=== PATIENT | female | born 1990 | race Caucasian/White ===

== ENCOUNTER 2016-08-11 16:14 | Emergency (ER) | payer SELFPAY ==
[2016-08-11 16:53] LABS: ABSOLUTE EOSINOPHILS # (AUTO) 0.2 10^3/uL (0.0-0.6); ABSOLUTE MONOCYTES (AUTO) 0.8 10^3/uL (0.1-1.4); ABSOLUTE NEUT (AUTO) 6.9 10^3/uL (1.7-8.2); BASOPHILS % (AUTO) 0.4 % (0-2); EOSINOPHILS % (AUTO) 2.3 % (0-6); HEMATOCRIT 39.3 % (36.0-47.0); HGB HCT DIFFERENCE -0.3; LYMPHOCYTES % (AUTO) 20.1 % (13-45); MEAN CORPUSCULAR HEMOGLOBIN 31.4 pg (27.0-33.4); MEAN CORPUSCULAR HGB CONC 33.1 g/dL (32.0-36.0); MEAN CORPUSCULAR VOLUME 95 fl (80-97); MONOCYTES % (AUTO) 7.9 % (3-13); RED BLOOD COUNT 4.15 10^6/uL (3.72-5.28); RED CELL DISTRIBUTION WIDTH 12.3 % (11.5-14.0); SEGMENTED NEUTROPHILS % (AUTO) 69.3 % (42-78); WHITE BLOOD COUNT 9.9 10^3/uL (4.0-10.5)
[2016-08-11 17:19] LABS: APPEARANCE,URINE CLEAR; BILIRUBIN,URINE NEGATIVE (NEGATIVE); GLUCOSE, URINE NEGATIVE (NEGATIVE); KETONES,URINE NEGATIVE (NEGATIVE); LEUKOCYTE ESTERASE,URINE NEGATIVE (NEGATIVE); NITRITE,URINE NEGATIVE (NEGATIVE); PROTEIN,URINE NEGATIVE (NEGATIVE); URINE SPECIFIC GRAVITY 1.014; UROBILINOGEN,URINE NEGATIVE mg/dL (<2.0)
[2016-08-11 17:25] LABS: ANION GAP 9 (5-19); BLOOD UREA NITROGEN 10 mg/dL (7-20); CALCIUM 8.9 mg/dL (8.4-10.2); CARBON DIOXIDE 24 mmol/L (22-30); CHLORIDE 105 mmol/L (98-107); CREATININE RESULT 0.71 mg/dL (0.52-1.25); GLUCOSE 85 mg/dL (75-110); POTASSIUM 4.6 mmol/L (3.6-5.0)
[2016-08-11 17:34] LABS: URINE BARBITURATES SCREEN NEGATIVE; URINE METHADONE SCREEN NEGATIVE; URINE PHENCYCLIDINE SCREEN NEGATIVE
--- NOTE | 2016-08-11 18:06 | EKG REPORT ---
SEVERITY:- NORMAL ECG - SINUS RHYTHM : Confirmed by: Duke Chen MD 11-Aug-2016 18:04:55
--- NOTE | 2016-08-11 18:56 | ER Document Report ---
ED Syncope and Near Syncope - General Chief Complaint: Syncope Stated Complaint: DIZZY Time Seen by Provider: 08/11/16 16:36 Mode of Arrival: Medic TRAVEL OUTSIDE OF THE [place] IN LAST 30 DAYS: No - Related Data Allergies/Adverse Reactions: No Known Allergies Allergy (Verified 09/14/15 11:31) Past Medical History - Social History Family History: Reviewed & Not Pertinent - Past Medical History Cardiac Medical History: Denies: Hx Coronary Artery Disease, Hx Heart Attack, Hx Hypertension Pulmonary Medical History: Denies: Hx Asthma, Hx Bronchitis, Hx COPD, Hx Pneumonia Neurological Medical History: Denies: Hx Cerebrovascular Accident, Hx Seizures Musculoskeltal Medical History: Denies Hx Arthritis Past Surgical History: Reports: Hx Cholecystectomy. Denies: Hx Hysterectomy Physical Exam - Vital signs Vitals: Resp Pulse Ox 17 100 08/11/16 16:46 08/11/16 16:46 Course - Re-evaluation Re-evalutation: 08/11/16 18:56 I personally performed the services described in the documentation, reviewed and edited the documentation which was dictated to my scribe in my presence, and it accurately records my words and actions. seen and evaluated in the emergency department with lower abdominal pain and vaginal bleeding. Patient states that she had a positive test on July 26. She has not sought out any treatment or seen an [facility] physician. She said 2-3 days ago she started having lower abdominal pelvic pain initially some spotting and then some bleeding. She has a picture on her cell phone of something that she passed last night which is not really clear as to whether it' s tissue from the fetus or not. She says since last night the pain and the bleeding had gotten better. Her quantitative beta hCG is 2233 with an ultrasound showing no intrauterine or extrauterine . I spoke with the LENS ASSORTER physician converter operator Dr. Jenkins who states her Quant is low therefore he may not be able to see a developing fetus inside the uterus, or she is in the process of having a miscarriage, or she has an early ectopic that is not showing up as an adnexal mass. Had an extensive conversation with the patient at the bedside and gave her details about a repeat quantitative and ultrasound 48 hours as well as 1 day follow-up with the LENS ASSORTER physician. Explained to her and gave her discharge instructions that we cannot rule out an ectopic . She is to return immediately for increasing pain bleeding or any other concerns otherwise she is to call Dr. Jenkins office tomorrow for a follow-up appointment with LENS ASSORTER in one to 2 days extensive discussion on reasons for ED return sooner - Vital Signs Vital signs: Temp Pulse Resp BP Pulse Ox 18 108/74 100 08/11/16 18:36 08/11/16 18:36 08/11/16 18:36 - Laboratory Result Diagrams: 08/11/16 16:40 08/11/16 16:40 Laboratory results interpreted by me: 08/11/16 17:05 Urine Blood MODERATE H Discharge - Discharge Clinical Impression: Headache Qualifiers: Headache type: unspecified Headache chronicity pattern: acute headache Intractability: not intractable Qualified Code(s): R51 - Headache Additional Instructions: Pelvic Pain in Lower abdominal pain during can have many causes. We look for serious causes such as appendicitis, tubal , miscarriage, placental separation, or urinary tract infection. Less serious causes of pain include corpus luteum cyst (ovarian cyst of ) or stretching of the pelvic tissues by the enlarging uterus. Sometimes the pain comes from the bowels. If no specific cause for the pain is found, we attribute the pain to stretching of the uterine ligaments. This is called "round ligament strain." It is not dangerous. Just rest until the pain goes away. Call us or come back for reexamination if any problems occur, such as: (1) Pain that becomes more severe, steady, or becomes concentrated in one specific area. Also, pain that is more severe with movement or coughing. (2) Vomiting that persists or becomes more frequent. (3) Blood in the vomitus, urine, or bowel movements. Blood in the stool may have a tarry or black appearance. (4) Shaking chills or fever greater than 100 degrees. (5) The abdomen becomes more distended or swollen. (6) Bowel movements cease. (7) Vaginal bleeding. cannot exclude and early ectopic If the ruptures the tube, this is an emergency. Rupture causes severe lower abdominal pain. Sometimes patients faint as the rupture occurs. There's usually vaginal bleeding, but not always. Immediate surgery is required. Return at once if you have lightheadedness, constant or worsening low abdominal pain, or vaginal bleeding. Referrals: MAGDIEL VILLANUEVA DO [EFFICIENCY ANALYST] - Follow up tomorrow (Call the office in the a.m. to be seen in 1-2 days return for increasing worsening or new symptoms)
--- NOTE | 2016-08-11 19:01 | ER Document Report ---
[id number] 4d DIZZY Time Seen by Provider: 08/11/16 16:36 TRAVEL OUTSIDE OF THE [place] IN LAST 30 DAYS: No - Related Data Allergies/Adverse Reactions: No Known Allergies Allergy (Verified 09/14/15 11:31) Past Medical History - Social History Smoking Status: Unknown if Ever Smoked Family History: Reviewed & Not Pertinent - Past Medical History Cardiac Medical History: Denies: Hx Coronary Artery Disease, Hx Heart Attack, Hx Hypertension Pulmonary Medical History: Denies: Hx Asthma, Hx Bronchitis, Hx COPD, Hx Pneumonia Neurological Medical History: Denies: Hx Cerebrovascular Accident, Hx Seizures Musculoskeltal Medical History: Denies Hx Arthritis Past Surgical History: Reports: Hx Cholecystectomy. Denies: Hx Hysterectomy Physical Exam - Vital signs Vitals: Resp Pulse Ox 17 100 08/11/16 16:46 08/11/16 16:46 Course - Vital Signs Vital signs: Temp Pulse Resp BP Pulse Ox 16 110/72 99 08/11/16 19:01 08/11/16 19:00 08/11/16 19:01 - Laboratory Result Diagrams: 08/11/16 16:40 08/11/16 16:40 Laboratory results interpreted by me: 08/11/16 17:05 Urine Blood MODERATE H - EKG Interpretation by Me Additional EKG results interpreted by me: 08/11/16 19:03 EKG shows normal sinus rhythm at [address] segment elevation or depression Discharge - Discharge Clinical Impression: Left against medical advice Headache Qualifiers: Headache type: unspecified Headache chronicity pattern: acute headache Intractability: not intractable Qualified Code(s): R51 - Headache Syncope Qualifiers: Syncope type: unspecified Qualified Code(s): R55 - Syncope and collapse Condition: Stable Disposition: HOME, SELF-CARE Additional Instructions: Headache The physician does not feel that the headache you are experiencing has a serious underlying cause. Most headaches are due to emotional stress, with resultant muscle tension (tension headache). Occasionally, headaches are secondary to changes in the blood vessels of the scalp (vascular headache and migraine headache). Sometimes, a headache is the first symptom of another developing illness, such as a viral infection. You have no evidence of stroke, bleeding, meningitis, or other serious cause of your headache. The treatment of headaches varies with the severity and cause of the pain. Not all headaches need pain shots. In fact, there is evidence that using narcotics for headaches may make them worse in the long run. The physician will determine the therapy that's in your best interest. If you develop a fever, if the headache is different from any you've previously experienced, or if the headache progressively worsens, then call your physician at once or go to the emergency room. Syncopal Episode Syncope (fainting or near-fainting) can occur from many different health problems. Or it can be a simple fainting spell requiring no treatment. It is safe for you to go home, but further evaluation will likely be necessary. Your work-up may include tests for internal bleeding, heart disease, medication problems, or near-strokes. Tests are not always required, however, depending on the nature of your problem. The warning signs of an impending faint include: dizziness, lightheadedness , nausea, hot flashes, tingling, and weakness. If this happens, lay down and put your feet up, then wait until all of these symptoms have passed before standing up again. If these episodes become recurrent, or if you develop chest pain, heart palpitations, mental confusion, blurred vision, or headache, then you should call the physician, or go to the emergency room. Referrals: [facility] [Provider Group] - Follow up tomorrow (in 1-2 days return to er sooner for increasing worsening or new symptoms)
[2016-08-11 19:04] VITALS: BP 110/72
== END 2016-08-11 19:14 | disposition home or self-care (01) ==
LOC: ER 16:14
DX: R55 Syncope and collapse (principal); R51 Headache; Z53.20 Procedure and treatment not carried out because of patient's decision for unspecified reasons
CPT/HCPCS: 36415; 71010; 80048; 80307; 81001; 81025; 85025; 93005; 93010; 99284

== ENCOUNTER 2017-01-07 09:40 | Emergency (ER) | payer OTHER ==
--- NOTE | 2017-01-07 11:12 | ER Document Report ---
HPI - HPI Patient complains to provider of: sore throat Pain Level: 1 Context: 26 yo female c/o sore throat, cough x 3 days Associated Symptoms: Body/muscle aches, Productive cough, Fever, Headache, Hoarseness, Hurts to breath, Nausea, Sore throat. denies: Vomiting Exacerbated by: Coughing, Deep breathing Relieved by: Denies Similar symptoms previously: No Recently seen / treated by doctor: No - ROS Systems Reviewed and Negative: Yes All other systems reviewed and negative - REPRODUCTIVE LMP: 12/13/16 Reproductive: DENIES: : - DERM Skin Color: Normal Past Medical History - General Information source: Patient - Social History Smoking Status: Current Every Day Smoker Chew tobacco use (# tins/day): No Frequency of alcohol use: None Drug Abuse: None Lives with: Family Family History: Reviewed & Not Pertinent Patient has suicidal ideation: No Patient has homicidal ideation: No - Past Medical History Cardiac Medical History: Denies: Hx Coronary Artery Disease, Hx Heart Attack, Hx Hypertension Pulmonary Medical History: Denies: Hx Asthma, Hx Bronchitis, Hx COPD, Hx Pneumonia Neurological Medical History: Denies: Hx Cerebrovascular Accident, Hx Seizures Endocrine Medical History: Denies: Hx Diabetes Mellitus Type 1, Hx Diabetes Mellitus Type 2 Renal/ Medical History: Denies: Hx Peritoneal Dialysis Musculoskeltal Medical History: Denies Hx Arthritis Past Surgical History: Reports: Hx Cholecystectomy. Denies: Hx Hysterectomy - Immunizations Hx Diphtheria, Pertussis, Tetanus Vaccination: Yes Vertical Provider Document - CONSTITUTIONAL Agree With Documented VS: Yes Exam Limitations: No Limitations General Appearance: WD/WN, No Apparent Distress - mildly ill looking - INFECTION CONTROL TRAVEL OUTSIDE OF THE [place] IN LAST 30 DAYS: No - HEENT HEENT: Pharyngeal Tenderness, Pharyngeal Erythema - NECK Neck: Normal Inspection, Supple - RESPIRATORY Respiratory: Breath Sounds Normal, No Respiratory Distress O2 Sat by Pulse Oximetry: 99 - CARDIOVASCULAR Cardiovascular: Regular Rate, Regular Rhythm - MUSCULOSKELETAL/EXTREMETIES Musculoskeletal/Extremeties: ROBERTO LIN - NEURO Level of Consciousness: Awake, Alert - DERM Integumentary: Warm, Dry, No Rash Course - Vital Signs Vital signs: Temp Pulse Resp BP Pulse Ox 98.4 F 89 14 131/81 H 99 01/07/17 10:04 01/07/17 10:04 01/07/17 10:04 01/07/17 10:04 01/07/17 10:04 Discharge - Discharge Clinical Impression: Sore throat, Cough Condition: Stable Disposition: HOME, SELF-CARE Instructions: Sore Throat ([facility]), Cough Suppressant & Expectorant Medications Additional Instructions: take medications as prescribed lozenges, salt water gargles new tooth brush in 2 days Prescriptions: Amoxicillin 500 mg PO TID #21 tablet Phenylephrine HCl/Cod/Prometh [Phenergan Vc-Codeine Syrup] 5 - 10 ml PO Q4H # 120 ml Forms: Return to Work
[2017-01-07 11:37] VITALS: BP 123/74
== END 2017-01-07 11:35 | disposition home or self-care (01) ==
LOC: ER 09:40
DX: J02.9 Acute pharyngitis, unspecified (principal); R05 Cough; R50.9 Fever, unspecified; R51 Headache; R49.0 Dysphonia; R07.1 Chest pain on breathing; F17.200 Nicotine dependence, unspecified, uncomplicated
CPT/HCPCS: 99282

== ENCOUNTER 2017-01-14 14:25 | Emergency (ER) | payer OTHER ==
[2017-01-14] MEDS ORDERED: ALBUTEROL SULFATE 0.083% NEB 2.5 MG/3 ML AMPUL NEB ONE (16:27)
[2017-01-14 16:28] LABS: APPEARANCE,URINE CLEAR; BILIRUBIN,URINE NEGATIVE (NEGATIVE); GLUCOSE, URINE NEGATIVE (NEGATIVE); KETONES,URINE NEGATIVE (NEGATIVE); LEUKOCYTE ESTERASE,URINE NEGATIVE (NEGATIVE); NITRITE,URINE NEGATIVE (NEGATIVE); PROTEIN,URINE NEGATIVE (NEGATIVE); URINE SPECIFIC GRAVITY 1.003; UROBILINOGEN,URINE NEGATIVE mg/dL (<2.0)
--- NOTE | 2017-01-14 16:30 | ER Document Report ---
HPI - HPI Patient complains to provider of: cough, vaginal discharge Pain Level: 2 Context: Patient is a 26-year-old female who presents emergency department complaining of vaginal discharge. Patient states that she has had 4 days of yellow/green vaginal discharge with associated vaginal itching and odor. Patient states that she sexually active in a monogamous relationship with her . They do not use protection. Past medical history significant for recent antibiotic use for strep throat. Patient states that her initial symptoms were sore throat with associated cough. Patient states that the sore throat is not resolved with antibiotics but she still has had a cough for the past 10 days. She denies any fevers, chills. States productive of clear sputum but nothing purulent. Denies any history of asthma. States she is a pack-a-day smoker for the past 6 years. - CARDIOVASCULAR Cardiovascular: DENIES: Chest pain - REPRODUCTIVE Reproductive: DENIES: : - DERM Skin Color: Normal Past Medical History - General Last Menstrual Period: ended 2 days ago - Social History Smoking Status: Current Every Day Smoker Chew tobacco use (# tins/day): No Drug Abuse: None Family History: Reviewed & Not Pertinent Patient has suicidal ideation: No Patient has homicidal ideation: No - Past Medical History Cardiac Medical History: Denies: Hx Coronary Artery Disease, Hx Heart Attack, Hx Hypertension Pulmonary Medical History: Denies: Hx Asthma, Hx Bronchitis, Hx COPD, Hx Pneumonia Neurological Medical History: Denies: Hx Cerebrovascular Accident, Hx Seizures Endocrine Medical History: Denies: Hx Diabetes Mellitus Type 1, Hx Diabetes Mellitus Type 2 Renal/ Medical History: Denies: Hx Peritoneal Dialysis Musculoskeltal Medical History: Denies Hx Arthritis Past Surgical History: Reports: Hx Cholecystectomy. Denies: Hx Hysterectomy - Immunizations Hx Diphtheria, Pertussis, Tetanus Vaccination: Yes Vertical Provider Document - CONSTITUTIONAL Agree With Documented VS: Yes Exam Limitations: No Limitations General Appearance: WD/WN, No Apparent Distress - INFECTION CONTROL TRAVEL OUTSIDE OF THE [place] IN LAST 30 DAYS: No - HEENT HEENT: Atraumatic, Normal ENT Exam, Normocephalic - NECK Neck: Normal Inspection. negative: Lymphadenopathy-Left, Lymphadenopathy-Right - RESPIRATORY Respiratory: No Respiratory Distress, Chest Non-Tender, Wheezing - b/l O2 Sat by Pulse Oximetry: 100 - CARDIOVASCULAR Cardiovascular: Regular Rate, Regular Rhythm, No Murmur - GI/ABDOMEN Gastrointestinal: Abdomen Soft, Abdomen Non-Tender, No Organomegaly, Normal Bowel Sounds - REPRODUCTIVE Notes: FEMALE : Normal external exam. No evidence of lesions, lacerations, bruising or vesicles. Speculum exam normal cervix closed. Positive evidence of vaginal discharge with odor. No evidence of lesions. No vaginal bleeding. Bimanual exam normal no cervical motion tenderness. No adnexal mass or adnexal tenderness. - NEURO Level of Consciousness: Awake, Alert, Appropriate Motor/Sensory: No Motor Deficit, No Sensory Deficit - DERM Integumentary: Warm, Dry, No Rash Course - Re-evaluation Re-evalutation: 01/14/17 17:39 Patient is a 18-year-old female hemodynamic stable, no acute distress and afebrile. Cough is consistent with reactive airway disease with her associated upper respiratory symptoms. Patient home on inhalers. Regarding her vaginal discharge. No evidence of trichomonas or yeast. Positive for bacterial vaginosis. Will initiate on Flagyl. 01/14/17 21:21 No evidence of chlamydia or gonorrhea. - Vital Signs Vital signs: Temp Pulse Resp BP Pulse Ox 98.3 F 82 12 134/100 H 100 01/14/17 14:29 01/14/17 14:29 01/14/17 14:29 01/14/17 14:29 01/14/17 14:29 Discharge - Discharge Clinical Impression: Bacterial vaginitis, Cough Condition: Good Disposition: HOME, SELF-CARE Additional Instructions: VAGINITIS: Your exam shows that you have vaginitis, a vaginal infection. The infection can be caused by a many different organisms, including trichomonas or Gardnerella. The usual symptoms are vaginal irritation and discharge. The treatment is usually antibiotics such as Flagyl. Laboratory tests can determine which germ is responsible. Use the medication as prescribed. Because this infection can be transmitted sexually, your sexual partner may need to be checked and treated also. If your physician has not discussed this with you, please check before resuming sexual relations. If a culture shows gonorrhea or chlamydia, the infection must be reported to the health department. Call the doctor if you develop pelvic pain, fever, or problems with urination, or if you don't improve as expected. VAGINOSIS, BACTERIAL: Your exam shows you have bacterial vaginosis. This condition is due to an overgrowth of bacteria in the vagina. Symptoms may include vaginal itching or pain, a smelly discharge, and sometimes burning with urination. Normally this is not transmitted by sexual contact. Vaginosis can be treated with oral or topical antibiotics. Metronidazole ( Flagyl) pills are usually effective. Topical vaginal creams include Cleocin and Metro-Gel. You should avoid sexual contact until your symptoms are all better. Call the doctor if you develop pelvic pain, fever, or problems with urination, or if you don't improve as expected. FOLLOW-UP CARE: If you have been referred to a physician for follow-up care, call the physician s office for an appointment as you were instructed or within the next two days. If you experience worsening or a significant change in your symptoms, notify the physician immediately or return to the Emergency Department at any time for re-evaluation. Prescriptions: Benzonatate [Tessalon Perles 100 mg Capsule] 100 mg PO Q8HP PRN #40 capsule PRN Reason: Methylprednisolone [Medrol Dosepack (4 mg/Tab) 21 Tab/Dosepak] 4 mg PO ASDIR PRN #21 tab.ds.pk PRN Reason: Metronidazole [Flagyl 500 mg Tablet] 500 mg PO BID 7 Days Referrals: RATNA MERRILL MD [ACTIVE STAFF] - Follow up as needed
--- NOTE | 2017-01-14 16:50 | RADIOLOGY REPORT (SQ) ---
EXAM DESCRIPTION: CHEST PA/LAT COMPLETED DATE/TIME: 01/14/2017 4:42 pm REASON FOR STUDY: cough COMPARISON: 09/14/2015 TECHNIQUE: Frontal and lateral radiographic views of the chest acquired. NUMBER OF VIEWS: Two view. LIMITATIONS: None. FINDINGS: LUNGS AND PLEURA: No opacities, masses or pneumothorax. No pleural effusion. MEDIASTINUM AND HILAR STRUCTURES: No masses or contour abnormalities. HEART AND VASCULAR STRUCTURES: Heart normal size. No evidence for failure. BONES: No acute findings. HARDWARE: None in the chest. OTHER: No other significant finding. IMPRESSION: NO SIGNIFICANT RADIOGRAPHIC FINDING IN THE CHEST. TECHNICAL DOCUMENTATION: JOB ID: [id number] [email or web address] All Rights Reserved
[2017-01-14 17:29] VITALS: BP 126/76
[2017-01-14] MEDS ORDERED: ALBUTEROL SULFATE HFA (90 MCG/PUFF) 8 GM MDI (1 MDI/ER DISP) IH PRN (17:42)
[2017-01-14 18:10] LABS: CHLAM PCR NOT DETECTED (NOT DETECT)
== END 2017-01-14 17:50 | disposition home or self-care (01) ==
LOC: ER 14:25
DX: N76.0 Acute vaginitis (principal); R05 Cough; N89.8 Other specified noninflammatory disorders of vagina; F17.200 Nicotine dependence, unspecified, uncomplicated
CPT/HCPCS: 94640; 99283; 87210; 81025; 81001; 87491; 87591; 71020; J3490